=== PATIENT | female | born 1960 | race Caucasian/White ===

== ENCOUNTER 2025-04-01 18:33 | Emergency (ER) | payer BC ==
[~2025-04-01] VITALS: Ht 172.7 cm; Wt 94.5 kg
[2025-04-01] MEDS: KETOROLAC 30 MG/ML 1 ML VIAL IM ONE (23:35)
[2025-04-02] MEDS: predniSONE 20 MG TAB PO ONE (00:36)
[2025-04-02] MEDS ORDERED: MEDR4PAK PO (01:39)
[2025-04-02] MEDS ORDERED: OXYC-517 PO (01:39)
[2025-04-02 02:10] VITALS: BP 181/81; TEMP 96.9; O2SAT 96
== END 2025-04-02 02:13 | disposition home or self-care (01) ==
LOC: M ED 18:33 → EDBD 18:33 → M ED 04-02 02:13
DX: M17.12 Unilateral primary osteoarthritis, left knee (principal); F17.200 Nicotine dependence, unspecified, uncomplicated; Z88.8 Allergy status to other drugs, medicaments and biological substances; Z88.6 Allergy status to analgesic agent; Z79.899 Other long term (current) drug therapy
CPT/HCPCS: 73564; 96372; 99284; J1885; J7512